=== PATIENT | female | born 1990 | race Caucasian/White ===

== ENCOUNTER 2016-05-01 16:00 | Inpatient (IN) | payer BC ==
[~2016-05-01] VITALS: Ht 165.1 cm; Wt 80.9 kg
[2016-05-01 16:39] VITALS: Ht 165.1 cm; Wt 80.9 kg
[2016-05-01] MEDS ORDERED: PRENTAB26 PO (16:39)
[2016-05-01] MEDS ORDERED: LACTATED RINGER'S 1000ML 1,000 ML IV PRN (16:54)
[2016-05-01] MEDS: LACTATED RINGER'S 1000ML 1,000 ML IV SCH ×2 (17:00→19:17)
[2016-05-01] MEDS ORDERED: BUPIVACAINE 0.25% 30 ML VIAL ONE (17:09)
[2016-05-01] MEDS ORDERED: FENTANYL CITRATE INJ 50 MCG/1 ML 2 ML VIAL ONE (17:10)
[2016-05-01] MEDS ORDERED: EpHEDrine SULFATE INJ 50 MG/ML AMP ONE (17:10)
[2016-05-01] MEDS ORDERED: FENTANYL 2MCG/ML ROPIV 1.25MG/ML 100ML BAG EPI ONE (17:10)
[2016-05-01 17:14] LABS: HEMATOCRIT 35.2 % (37-47); MEAN CELL VOLUME 86.3 fL (80-100); MEAN CORPUSCULAR HEMOGLOBIN 29.9 pg (25-34); MEAN CORPUSCULAR HGB CONC 34.7 g/dl (32-36); MEAN PLATELET VOLUME 9.4 fL (7.4-10.4); PLATELET COUNT 227 K/uL (130-400); RED BLOOD COUNT 4.08 M/uL (4.2-5.4); WHITE BLOOD COUNT 14.33 K/uL (4.8-10.8)
[2016-05-01] MEDS ORDERED: NALOXONE HCL INJ 1 MG in SODIUM CHLORIDE 0.9% 1000ML 1,000 ML IV PRN (18:30)
[2016-05-01] MEDS ORDERED: NALBUPHINE HCL INJ 10 MG/ML AMP IV PRN (18:30)
[2016-05-01] MEDS ORDERED: LACTATED RINGER'S 1000ML 500 ML IV PRN (18:30)
[2016-05-01] MEDS ORDERED: NALOXONE HCL INJ 0.4 MG/1 ML VIAL/CARP IV PRN (18:30)
[2016-05-01] MEDS ORDERED: ONDANSETRON INJ 2 MG/ML 2 ML VIAL IV PRN (18:30)
[2016-05-01] MEDS ORDERED: PROMETHAZINE HCL INJ 25 MG in SODIUM CHLORIDE 0.9% 50ML 50 ML IV PRN (18:30)
[2016-05-01] MEDS ORDERED: EpHEDrine SULFATE INJ 50 MG/ML AMP IV PRN (18:30)
[2016-05-01] MEDS ORDERED: DiphenhydrAMINE HCL 50 MG/ML VIAL IV PRN (18:30)
[2016-05-01] MEDS ORDERED: FENTANYL 2MCG/ML ROPIV 1.25MG/ML 100ML BAG EPI PRN (18:30)
--- NOTE | 2016-05-01 20:37 | Progress Note ---
Progress Note Date of Service May 01, 2016. Progress Note Cervix 4.5/80/-2/vertex AROM with light meconium stained fluid FHT Cat 1
--- NOTE | 2016-05-01 21:03 | HISTORY & PHYSICAL EXAMINATION ---
DATE OF ADMISSION: 05/01/2016 REASON FOR ADMISSION: Term in labor. HISTORY OF PRESENT ILLNESS: The patient is a 26-year-old female, 2, para 0-0-1-0 at 40.5 weeks, AB positive, GBS negative, who was admitted from the office after having some irregular contractions and several variables. The patient was admitted. She progressed to active labor. On admission, she was 3-4 cm dilated and was admitted. PAST MEDICAL HISTORY: Positive for asthma and an abnormal Pap smear. PAST SURGICAL HISTORY: Positive for shoulder surgery. ALLERGIES: No known allergies. MEDICATIONS: vitamins. FAMILY HISTORY: Noncontributory. REVIEW OF SYSTEMS: Negative. SOCIAL HISTORY: Denies smoking, alcohol or drug use. PHYSICAL EXAMINATION: HEENT: Within normal limits. LUNGS: Clear to auscultation. COR: Regular rate and rhythm. ABDOMEN: Soft, nontender and gravid. EXTREMITIES: Within normal limits. NEUROLOGIC: Intact. ASSESSMENT: Term in labor. PLAN: We will admit and anticipate normal delivery.
[2016-05-01] MEDS ORDERED: OXYTOCIN 30 UNITS/500ML NSS IV ONE (22:51)
[2016-05-01] MEDS ORDERED: LACTATED RINGER'S 1000ML 1,000 ML IV SCH (23:26)
[2016-05-01] MEDS ORDERED: LANOLIN OINT EXT PRN ×2 (23:30)
[2016-05-01] MEDS ORDERED: OXYTOCIN 30 UNITS/500ML NSS IV PRN (23:30)
[2016-05-01] MEDS ORDERED: ACETAMINOPHEN 325 MG TAB PO PRN (23:30)
[2016-05-01] MEDS ORDERED: BENZOCAINE 20% AER SPR 82.5 GM CAN EXT PRN (23:30)
[2016-05-01] MEDS ORDERED: SUPERCREAM 0.870 % 15GM JAR EXT PRN (23:30)
[2016-05-01] MEDS ORDERED: ACETAMINOPHEN/CODEINE 300/30MG TAB PO PRN ×2 (23:30)
[2016-05-01] MEDS ORDERED: HYDROCORTISONE ACETATE 25 MG SUPP PR PRN (23:30)
[2016-05-01] MEDS ORDERED: MEASLES, MUMPS & RUBELLA VIRUS VIAL SQ. ONE (23:30)
[2016-05-01] MEDS ORDERED: DIPHTHERIA/TETANUS/PERTUSSIS 0.5 ML SYR/VIAL IM. ONE (23:30)
--- NOTE | 2016-05-01 23:35 | Progress Note ---
Progress Note Date of Service May 01, 2016. Progress Note Delivery Note live female over intact perineum ORQUIDEA with nuchal cord x1 reduced at delivery. Apgars 8/9 weight pending. Delayed cord clamping followed by cord blood and spontaneously delivery of intact placenta. Small 1st degree tear repaired with 3/0 Vicryl suture. EBL 200 ml. Final sponge, needle and instrument count are correct. Mom and baby stable.
[2016-05-02] VITALS (7 sets, daily range): BP systolic 102–131; BP diastolic 64–77; PULSE 76–88; TEMP 36.5–36.9; O2SAT 97–99
--- NOTE | 2016-05-02 01:01 | Anesthesia Procedure Note ---
Anesthesia Epidural Removal Nt Date & Time May 02, 2016 at 01:01 Vital Signs Pain Intensity: 2.0 Notes Mental Status: alert / awake / arousable, participated in evaluation Nausea / Vomiting: adequately controlled Pain: adequately controlled Airway Patency, RR, SpO2: stable & adequate BP & HR: stable & adequate Hydration State: stable & adequate Neuraxial Anesthesia: was administered Anesthetic Complications: no major complications apparent, pt satisfied with anesthetic care Epidural: removed without complications, with tip intact
[2016-05-02] MEDS: IBUPROFEN 600 MG TAB PO PRN ×4 (01:39→21:57)
[2016-05-02 06:48] LABS: HEMATOCRIT 32.4 % (37-47)
[2016-05-02] MEDS: PRENATAL VITAMIN TAB PO SCH (07:47)
[2016-05-02] MEDS: DOCUSATE SODIUM 100 MG CAP PO SCH ×2 (07:48→19:56)
[2016-05-02] MEDS: FERROUS SULFATE 325 MG TAB PO SCH (07:50)
--- NOTE | 2016-05-02 10:11 | OB/GYN Progress Note ---
[employer] Progress Note Date of Service May 02, 2016. Subjective conversation w/ patient, physical exam Ambulation: ambulating normally Voiding: no voiding problems Passing Gas: Yes Diet Tolerance: Regular Diet Lochia: Moderate Review of Systems Constitutional: No chills, No fatigue, No fever, No problem reported, No sweats , No weakness, No weight loss Respiratory: No cough, No dyspnea at rest, No dyspnea on exertion, No hemoptysis, No problem reported, No shortness of breath, No sputum, No wheezing Cardiac: No PND, No chest pain, No claudication, No edema, No orthopnea, No palpitations, No problem reported Breast: No breast lump, No breast pain, No change in shape, No nipple discharge , No problem reported, No see HPI Abdomen: No GI bleeding, No constipation, No diarrhea, No nausea, No pain, No problem reported, No vomiting Female : No abnormal vaginal bleeding, No dysuria, No hematuria, No incontinence, No problem reported, No see HPI, No urinary frequency, No vaginal discharge PPD #2 pt doing well no complaints anticipate disch AM Objective Vital Signs Date Time Temp Pulse Resp B/P Pulse Ox O2 Delivery O2 Flow Rate FiO2 05/02/16 04:10 36.7 82 18 106/64 97 Room Air 05/02/16 02:00 36.7 87 18 131/77 99 Room Air 05/02/16 02:00 99 Room Air Laboratory Results Last 24 Hours Test 05/01/16 17:09 05/02/16 06:07 White Blood Count 14.33 K/uL Red Blood Count 4.08 M/uL Hemoglobin 12.2 g/dL 10.9 g/dL Hematocrit 35.2 % 32.4 % Mean Corpuscular Volume 86.3 fL Mean Corpuscular Hemoglobin 29.9 pg Mean Corpuscular Hemoglobin Concent 34.7 g/dl RDW Standard Deviation 41.8 fL RDW Coefficient of Variation 13.3 % Platelet Count 227 K/uL Mean Platelet Volume 9.4 fL
[2016-05-02] MEDS ORDERED: BISACODYL 5 MG TABEC PO SCH (20:00)
[2016-05-03] MEDS ORDERED: BISACODYL 10 MG SUPP PR PRN (07:00)
[2016-05-03 07:15] VITALS: BP 114/70; PULSE 78; TEMP 36.3; O2SAT 100
[2016-05-03] MEDS: DOCUSATE SODIUM 100 MG CAP PO SCH (07:37)
[2016-05-03] MEDS: IBUPROFEN 600 MG TAB PO PRN ×2 (07:37→12:09)
[2016-05-03] MEDS: FERROUS SULFATE 325 MG TAB PO SCH (07:37)
[2016-05-03] MEDS: PRENATAL VITAMIN TAB PO SCH (07:37)
--- NOTE | 2016-05-03 09:04 | Discharge Instructions ---
Discharge Instructions Date of Service May 03, 2016. Admission Reason for Admission: Prolonged Monitering Discharge Discharge Diagnosis / Problem: VAGINAL dELIVERY Discharge Goals Goal(s): Routine recovery after delivery Medications Continue Dispensed Medications: supercream, dermaplast, tucks, lansinoh Activity Recommendations Activity Limitations: per Instructions/Follow-up section . Instructions / Follow-Up Instructions / Follow-Up ACTIVITY RECOMMENDATIONS: * Gradual return to full activity over the next 2-3 weeks. * No lifting - nothing heavier than baby over the next 2-3 weeks. * Do not engage in vigorous exercise, sexual activity or sports until cleared by your physician. * Do not drive or operate any motorized equipment until cleared by your physician. * You may shower/bathe daily. BREAST CARE: If you are not breast feeding: * Wear a supportive bra 24 hours a day for one to two weeks. * Avoid stimulating your breasts and nipples as much as possible during the first few weeks after delivery. * When taking a shower, have the warm water hit your back, not breasts. * When your breasts feel full, apply ice packs. Usually three to four times a day helps ease the discomfort. * Take a mild pain medication (Tylenol/Motrin) when you are uncomfortable. If breast feeding: * Use breast milk to lubricate nipples. Lansinoh cream may be used for sore nipples. You do not need to remove cream prior to breast feeding. If using a different brand of cream, check the label for directions regarding removal of cream prior to nursing. * Wear a supportive bra. * If having problems with breasts or breast feeding, call a regulatory affairs consultant or your health care provider. EPISIOTOMY CARE: After delivery, if you have an episiotomy (stitches), the following steps will ease discomfort and aid healing. * For the first 24 hours after delivery, place ice packs next to your episiotomy to help reduce swelling. * After the first 24 hour-period, sitz baths, either portable or in the tub, are suggested. A shower with a shower arm sprayed over the episiotomy may be comforting. * Vandana care should be done after each voiding and bowel movement. Squirt warm water from a plastic bottle over the perineum (region of the body between the anus and urinary opening) and pat dry. * Use Dermoplast to ease discomfort. Shake container. Willow directly over the episiotomy. * Place a Tucks on a clean sanitary pad next to your episiotomy. OVER THE COUNTER MEDICATION: * For discomfort or pain, you may use Acetaminophen (Tylenol), Ibuprofen (Advil ), or Naproxen (Aleve) following the package directions. * For constipation you may use Colace following the package directions. SPECIAL CARE INSTRUCTIONS: When you are discharged from the hospital, it is important for you to follow the instructions listed below: * During the first week at home, you should be able to care for yourself and your baby. In addition, the usual light household activities are encouraged. * Limit your activities to the way you feel. Do not try to clean the house or move furniture. Be sensible. * If you actively engage in sports and have done so up until the time of your delivery, you may resume these activities as soon as you feel able. This may take up to one month or even longer. Use good judgment. * Continue to take your vitamins for at least six weeks after the of your baby. * Your diet need not be limited unless you were on a special diet before your delivery. Breast-feeding mothers need around 2500 calories per day and at least 64-80 ounces of fluid per day (8 to 10 glasses). * You should eat foods from the four major food groups. Crash diets or fad diets are to be avoided. Eating lean meats, fresh fruits and vegetables, low-fat dairy products, high fiber foods and a regular exercise program, will help you get back to your pre- weight without putting your health at risk. * Constipation is sometimes a problem after delivery. Take a mild laxative as needed. If breast feeding, Milk of Magnesia is acceptable to use. You may use a suppository or Fleets enema if no episiotomy. * A daily shower or tub bath is suggested. Be sure to thoroughly and gently dry the perineum. * A bloody vaginal discharge will usually continue until around four weeks post . A small amount of bleeding may continue for as long as six weeks. Vaginal discharge changes from the bright red bleeding after delivery to pink then brownish and finally yellowish-pink before becoming white and disappearing. * Bleeding may increase with activity. Your first period may come in 4-8 weeks. If you are breast feeding, your period may be delayed even longer. * [place] (sex) can begin whenever both you and your partner feel comfortable and do not have any form of genital infection. It is recommended that you wait until after your return appointment and discuss with your physician. If you have questions, please talk to your health care practitioner. A condom should be used to prevent infection and . * Foreplay, gentle intercourse and lubrication is very important the first several times to prevent pain. A water-based lubricant such as K-Y jelly or Astroglide may be used. * Tampons may be used six weeks after delivery. * Douching should be avoided for 6 weeks after delivery. * If you have RH negative blood and your baby is RH positive, you will receive RHOGAM by injection prior to discharge. The nurse will give you a card to keep with you that has the date and place that you received RHOGAM after delivery. * During your care, you had a Rubella screen done to check for the presence of rubella antibodies in your blood. If your test was negative, you will receive a Rubella vaccine prior to discharge. This vaccine may cause a fever, soreness at the injection site and flu-like symptoms. If these symptoms persist, notify your health care practitioner. is not advised for three months after a Rubella vaccine. There is a higher chance of having a baby with defects if conceived within three months of getting the vaccine. * If you were discharged 24 hours from delivery or before 48 hours: Visiting nurses will come to your home 48 hours after discharge to assess you and your baby. The visiting nurse will meet with you while you are in the hospital to arrange a time and get directions to your home. * Verbalizes understanding of car seat law as reviewed with patient nursing. * Car Seat hand-out given and reviewed with patient by nursing. * Shaken baby information reviewed with patient by nursing. Call you doctor if: * Heavy bleeding (saturating several pads an hour) or passing clots the size of your fist. * A fever >101 degrees F (38.3 degrees C) on two occasions four hours apart and/or chills. * Unusual pain in the pelvic or vaginal areas. * "Baby Blues" lasting longer than two weeks. If you have any questions or concerns, call your health care practitioner at . FOLLOW-UP VISIT: * Please call the office at to schedule a 6 week examination. It is important you keep this appointment. * It is important for you to make arrangements for either yearly or twice yearly check-ups thereafter. Current Hospital Diet Patient's current hospital diet: Regular OB Diet Discharge Diet Recommended Diet: Regular OB Diet Pending Studies Studies pending at discharge: no Medical Emergencies . Who to Call and When: Medical Emergencies: If at any time you feel your situation is an emergency, please call 911 immediately. . Non-Emergent Contact Non-Emergency issues call your: Primary Care Provider, [employer] . . "Provider Documentation" section prepared by Matt Gonzalez. VTE Core Measure Inpt VTE Proph given/why not?: Treatment not indicated
--- NOTE | 2016-05-03 09:06 | OB/GYN Progress Note ---
CONCRETE RU[employer]ER Progress Note Date of Service May 03, 2016. Subjective conversation w/ patient Ambulation: ambulating normally Voiding: no voiding problems Passing Gas: Yes Diet Tolerance: Regular Diet Lochia: Small Feeding Type: Breast Feeding Pain: 03/05 Notes: Doing well, no concerns. Would like to go home today. Objective Vital Signs Date Time Temp Pulse Resp B/P Pulse Ox O2 Delivery O2 Flow Rate FiO2 05/03/16 07:35 Room Air 05/03/16 07:15 36.3 78 18 114/70 100 Room Air 05/02/16 23:20 36.9 86 18 124/74 98 Room Air 05/02/16 23:20 98 Room Air 05/02/16 19:26 Room Air 05/02/16 19:26 36.7 88 16 110/72 99 Room Air 05/02/16 15:45 36.7 80 18 107/66 Room Air 05/02/16 15:45 Room Air 05/02/16 12:15 36.5 80 18 120/73 Room Air Physical Exam General Appearance: WELL-APPEARING Respiratory/Chest: chest non-tender, lungs clear Cardiovascular: regular rate, rhythm Abdomen: normal bowel sounds, soft Fundus: Firm Extremities: normal range of motion, non-tender Assessment and Plan Post- Day Number: 2 Continue Routine Care: -D/C home today -F/U in 6 weeks
[2016-05-03 13:37] VITALS: BP_DIAS 70; PULSE 78; TEMP 36.3
== END 2016-05-03 14:25 | disposition home or self-care (01) | DRG 775 ==
LOC: C.LD 16:00 → C.OPB 16:00 → C.LD 16:56 → C.OBG 05-02 02:32
PROVIDERS: ADMIT Obstetrics & Gynecology; ATTEND Obstetrics & Gynecology
PROC: 10E0XZZ Delivery of Products of Conception, External Approach (ICD-10-PCS; principal; 2016-05-01)
PROC: 0HQ9XZZ Repair Perineum Skin, External Approach (ICD-10-PCS; principal; 2016-05-01)
DX: O70.0 First degree perineal laceration during delivery (principal); O69.81X0 Labor and delivery complicated by cord around neck, without compression, not applicable or unspecified; Z3A.40 40 weeks gestation of pregnancy; J45.909 Unspecified asthma, uncomplicated; Z37.0 Single live birth; O99.52 Diseases of the respiratory system complicating childbirth

== ENCOUNTER 2018-10-20 12:00 | Inpatient (IN) ==
--- OUTSIDE RECORDS SUMMARY | 2018-10-20 12:07 | External Medical Summary | Continuity of Care Document ---
:1990 Author Name Molly Allison, Provider Address Unavailable Unavailable , Care Team Providers Name Role Phone Jamie Allison, Emeterio Unavailable [email or web address] PCP, UNKNOWN Unavailable Unavailable Assessments Assessed Problems:Acne vulgaris Problems Acne vulgaris (706.1) (L70.0) Allergies and Adverse Reactions Allergy history not documented Medications Medications not documented Procedures Procedures not documented Immunizations Immunizations not documented Plan of Treatment Planned Observations Planned Goals not documented Results No Known Results Results not documented
[2018-10-20] MEDS ORDERED: OXYTOCIN 30 UNITS/500 ML BAG IV PRN ×2 (13:00→23:13)
[2018-10-20] MEDS ORDERED: DINOPROSTONE 10 MG INSERT PV ONE (13:00)
[2018-10-20 13:37] LABS: Mean Corpuscular Hemoglobin 29.6 pg (25-34); Mean Corpuscular Volume 86.4 fL (80-100); Mean Platelet Volume 9.1 fL (7.4-10.4); Platelet Count 240 K/uL (130-400); RDW Coefficient of Variation 13.4 % (11.5-14.5); RDW Standard Deviation 42.1 fL (36.4-46.3); Red Blood Count 4.05 M/uL (4.2-5.4); White Blood Count 8.09 K/uL (4.8-10.8)
[2018-10-20 13:56] LABS: Mean Corpuscular Hgb Conc 34.3 g/dL (32-36)
[2018-10-20 14:00] LABS: Albumin Level 2.8 gm/dl (3.4-5.0); BUN Creatinine Ratio 15.9 (10-20); Calcium 8.1 mg/dl (8.5-10.1); Creatinine Clr Calc Pharmacy 151.6 ml/min; Est GFR (African American) 145.6; Est GFR (Non-African American) 125.6; Potassium 3.9 mmol/L (3.5-5.1)
[2018-10-20 14:03] LABS: Albumin Globulin Ratio 0.8 (0.9-2); Bilirubin,Total 0.3 mg/dl (0.2-1); Globulin 3.5 gm/dl (2.5-4.0); Total Protein 6.3 gm/dl (6.4-8.2)
--- NOTE | 2018-10-20 14:39 | History & Physical Report ---
Date of Service October 20, 2018 Assessment & Plan (1) Oligohydramnios in luz in third trimester: 28 yo at 40.2 wks with oligohydramnios, FHR reactive, cervix unfavorable Plan to admit monitor, cervical ripening with Cervidil All questions were answered History of Present Illness Chief Complaint: Induction Primary Care Provider: NO PCP Patient is a 28 yo at 40.2 wks who is being admitted for IOL at term for oligohydramnios, MARCELINO of 4.7 cm yesterday in office She has no complaints No ctxs/ LOF/VB LEONARDO/ Change in vision/ N&V/ CP/SOB +FM's Baby has been very active Her has been uncomplicated GBS negative Allergies Allergy/AdvReac Type Severity Reaction Status Date / Time No Known Allergies Allergy Verified 10/20/18 14:09 Home Medications Home Medications Medication Instructions Recorded Confirmed Type vit-iron fum-folic ac 1 tab PO DAILY 10/20/18 10/20/18 History [ Vitamin] Patient History Social History Preferred Language: [place] Beliefs That Will Affect Care: None marital status: Current Living Situation: Spouse Other Information That Helps Us Care for You: No Feels Safe at Home: Yes Safety Concerns: Feels Safe At This Time Smoking Status: Never smoker Hx Alcohol Use: No Hx Substance Use: No OB History FT in 2017 [employer] History No h/o STD's, no chlamydia/ GC/ HSV Review of Systems All systems reviewed & are unremarkable except as noted in HPI & below Physical Exam Constitutional: WD/WN, vitals as above well developed and well nourished Comfortable Gastrointestinal (Abdomen): normal bowel sounds, soft, nontender, no hepatosplenomegaly Abd: Soft, NT, Gravid Bed side US: Vertex, FHR 140's, FM's seen, MARCELINO 4 cm Musculoskeletal: no cyanosis or clubbing, extremities motor strength 5/5 Ext; NT, No edema Genitourinary: Cervix 1/ 50%/ -4, posterior, soft Results & Data Vital Signs (Past 12 Hours) Vital Signs Temp Pulse Resp BP 10/20/18 14:30 90 121/65 10/20/18 13:31 37.0 C 20 10/20/18 12:13 37.0 C 85 20 158/65 H Laboratory Results Lab Results 10/20/18 10/20/18 Range/Units 13:22 13:22 WBC 8.09 (4.8-10.8) K/uL RBC 4.05 L (4.2-5.4) M/uL Hgb 12.0 (12.0-16.0) g/dL Hct 35.0 L (37-47) % MCV 86.4 (80-100) fL MCH 29.6 (25-34) pg MCHC 34.3 (32-36) g/dL RDW Std Deviation 42.1 (36.4-46.3) fL RDW Coeff of Domenic 13.4 (11.5-14.5) % Plt Count 240 (130-400) K/uL MPV 9.1 (7.4-10.4) fL Sodium 139 (136-145) mmol/L Potassium 3.9 (3.5-5.1) mmol/L Chloride 110 H (98-107) mmol/L Carbon Dioxide 22 (21-32) mmol/L Anion Gap 7.0 (3-11) BUN 9 (7-18) mg/dl Creatinine 0.59 L (0.6-1.2) mg/dl Est Cr Clr Drug Dosing 151.6 ml/min Est GFR ( Amer) 145.6 Est GFR (Non-Af Amer) 125.6 BUN/Creatinine Ratio 15.9 (10-20) Glucose 81 (70-99) mg/dl Calcium 8.1 L (8.5-10.1) mg/dl Total Bilirubin 0.3 (0.2-1) mg/dl AST 13 L (15-37) U/L ALT 15 (12-78) U/L Alkaline Phosphatase 127 H (45-117) U/L Total Protein 6.3 L (6.4-8.2) gm/dl Albumin 2.8 L (3.4-5.0) gm/dl Globulin 3.5 (2.5-4.0) gm/dl Albumin/Globulin Ratio 0.8 L (0.9-2) Monitoring External Monitor NST: Reactive Tocodynamometer No ctxs
[2018-10-20] MEDS ORDERED: BUTORPHANOL TARTRATE 1 MG/ML VIAL IV PRN (15:14)
[2018-10-20] MEDS ORDERED: LACTATED RINGER'S 500 ML IV ONE (15:26)
[2018-10-20] MEDS: LACTATED RINGER'S 1,000 ML IV PRN ×2 (15:26→22:55)
--- NOTE | 2018-10-20 15:28 | Obstetrical Progress Note ---
Date of Service October 20, 2018 Subjective Patient is reevaluated She feels well, no contractions nor pain +FM Discussed PO and IVF hydration Continue to monitor Results & Data Vital Signs (Past 12 Hours) Vital Signs Temp Pulse Resp BP 10/20/18 14:59 37.1 C 10/20/18 14:57 86 128/69 10/20/18 14:30 90 121/65 10/20/18 13:31 37.0 C 10/20/18 12:13 37.0 C 85 20 158/65 H
--- NOTE | 2018-10-20 23:10 | Obstetrical Progress Note ---
Date of Service October 20, 2018 Subjective Patient is reevaluated She feels mild ctxs q 3-4 min, does not feel others in between No LOF/VB +FM FHR categ I [place] mild ctxs q 1-3 min, palpated mild Patient desires Stadol to sleep and not to wake u with ctxs She is hungry likes to eat when Cervidil is out Plan remove cervidil at 0230 am and let her eat/ shower and start pitocin Continue to monitor closely Results & Data Vital Signs (Past 12 Hours) Vital Signs Temp Pulse Resp BP 10/20/18 22:56 73 107/70 10/20/18 21:14 74 115/63 10/20/18 20:29 37.1 C 18 10/20/18 19:06 36.8 C 18 10/20/18 19:03 75 119/74 10/20/18 14:59 37.1 C 10/20/18 14:57 86 128/69 10/20/18 14:30 90 121/65 10/20/18 13:31 37.0 C 10/20/18 12:13 37.0 C 85 20 158/65 H
[2018-10-21] MEDS: LACTATED RINGER'S 1,000 ML IV PRN ×2 (05:43→07:37)
[2018-10-21] MEDS ORDERED: BUPIVACAINE 0.25% 30 ML VIAL ONE (06:53)
[2018-10-21] MEDS ORDERED: ePHEDrine sulfate 50 MG/ML AMP ONE (06:54)
[2018-10-21] MEDS ORDERED: fentaNYL citrate 100 MCG/2 ML VIAL ONE (06:54)
[2018-10-21] MEDS ORDERED: fentaNYL 2MCG/ML ROPIV 1.25MG/ML 100 ML BAG EPI ONE (06:55)
[2018-10-21] MEDS ORDERED: ePHEDrine sulfate 50 MG/ML AMP IV PRN (07:08)
[2018-10-21] MEDS ORDERED: fentaNYL 2MCG/ML ROPIV 1.25MG/ML 100 ML BAG EPI PRN (07:08)
[2018-10-21] MEDS ORDERED: NALBUPHINE HCL INJ 10 MG/ML AMP IV PRN (07:08)
[2018-10-21] MEDS ORDERED: DiphenhydrAMINE HCL 50 MG/ML VIAL IV PRN (07:08)
[2018-10-21] MEDS ORDERED: ONDANSETRON INJ 2 MG/ML 2 ML VIAL IV PRN (07:08)
[2018-10-21] MEDS ORDERED: NALOXONE HCL 1 MG in SODIUM CHLORIDE 0.9% 1000ML 1,000 ML IV PRN (07:08)
[2018-10-21] MEDS ORDERED: NALOXONE HCL 0.4 MG/1 ML VIAL/CARP IV PRN (07:08)
--- NOTE | 2018-10-21 07:08 | Anesthesiology Consultation ---
Date of Service October 21, 2018 Assessment & Plan (1) Encounter for pre-operative examination: Chart Review Chart Review: Acceptable Risk for Labor Epidural Consults Requested none ASA ASA2 Proposed Anesthesia Anesthesia Type: Labor Epidural Risk / Benefits Reviewed With: PT / POA / Parent / Guardian, Accepts Plan and Informed Consent Obtained History Height/Weight Height: 5 ft 5 in Weight: 82.1 kg Allergies Allergy/AdvReac Type Severity Reaction Status Date / Time No Known Allergies Allergy Verified 10/20/18 14:09 Medications Home Medications Medication Instructions Recorded Confirmed Last Taken vit-iron fum-folic ac 1 tab PO DAILY 10/20/18 10/20/18 10/19/18 09:00 [ Vitamin] Active Medications Generic Name Dose Route Start Last Admin Trade Name Freq PRN Reason Stop Dose Admin Butorphanol Tartrate 1 mg 10/20/18 15:14 10/20/18 23:13 Stadol IV 11/19/18 15:13 1 mg Q3HWA PRN Administration Pain Lactated Ringer's 1,000 mls @ 150 mls/hr 10/20/18 13:00 10/21/18 06:08 Lr IV 10/22/18 12:59 150 mls/hr .Q6H40M PRN Infusion L&D Protocol Protocol Oxytocin 30 units in 500 mls @ 4 mls/hr 10/20/18 23:13 10/21/18 04:50 Pitocin IV 10/22/18 23:12 0.24 units/hr .Q24H PRN 4 mls/hr Labor Induction/Augmentation Titration Protocol 0.24 UNITS/HR Exercise / Class Metabolic Activity II 4-5 Yardwork/Stairs/Walk up hill Past Surgical History Surgical History S/P arthroscopy of shoulder Past Anesthesia History No Hx of Anesthesia Complications and No Family Hx of Anesthesia Complications History of PONV No Hx of PONV and No Hx of Motion Sickness Social History Smoking Status: Never smoker Hx Alcohol Use: No Hx Substance Use: No substance use type: does not use Physical Exam Vital Signs Last Vital Signs Temp 98.2 F 10/21/18 03:46 Pulse 76 10/21/18 05:43 Resp 20 10/21/18 06:30 BP 107/68 10/21/18 05:43 Pulse Ox 99 10/21/18 00:30 ENMT Mouth: no dentition abnormality Thyromental Distance: > or= 3.5 Finger Breadths Mallampati Class: II Neck normal visual inspection Respiratory normal respiratory effort Auscultation: lungs clear to auscultation bilaterally Cardiovascular Rate/Rhythm: regular rate and regular rhythm Testing Laboratory Results 10/20/18 13:22 10/20/18 13:22
[2018-10-21] MEDS ORDERED: BENZOCAINE 20% AER SPR 82.5 GM CAN EXT PRN (10:38)
[2018-10-21] MEDS ORDERED: DIPHTHERIA/TETANUS/PERTUSSIS 0.5 ML SYR/VIAL IM ONE (10:38)
[2018-10-21] MEDS ORDERED: ACETAMINOPHEN 325 MG TAB PO PRN (10:38)
[2018-10-21] MEDS ORDERED: OXYTOCIN 30 UNITS/500 ML BAG IV PRN (10:38)
[2018-10-21] MEDS ORDERED: HYDROCORTISONE ACETATE 25 MG SUPP PR PRN (10:38)
[2018-10-21] MEDS ORDERED: SUPERCREAM 0.870% 15 GM JAR EXT PRN (10:38)
--- NOTE | 2018-10-21 10:41 | Obstetrical Progress Note ---
Date of Service October 21, 2018 Results & Data Vital Signs (Past 12 Hours) Vital Signs Temp Pulse Resp BP Pulse Ox 10/21/18 10:37 84 96 10/21/18 10:32 77 99 10/21/18 10:28 89 109/59 L 10/21/18 10:27 87 99 10/21/18 10:22 97 H 98 10/21/18 10:17 89 100 10/21/18 10:13 102 H 90 10/21/18 10:12 96 H 100 10/21/18 10:07 83 100 10/21/18 10:02 102 H 100 10/21/18 09:57 86 117/73 100 10/21/18 09:56 96 H 92 10/21/18 09:52 76 100 10/21/18 09:47 75 100 10/21/18 09:43 71 113/69 10/21/18 09:42 80 100 10/21/18 09:37 78 100 10/21/18 09:32 86 99 10/21/18 09:27 92 H 102/58 L 100 10/21/18 09:22 76 98 10/21/18 09:17 76 98 10/21/18 09:13 76 102/57 L 10/21/18 09:12 72 98 10/21/18 09:07 71 99 10/21/18 09:02 71 98 10/21/18 08:57 78 104/55 L 99 10/21/18 08:52 91 H 100 10/21/18 08:47 80 100 10/21/18 08:42 75 108/56 L 99 10/21/18 08:37 69 98 10/21/18 08:32 81 97 10/21/18 08:27 80 103/61 99 10/21/18 08:22 70 95 10/21/18 08:17 78 100 10/21/18 08:12 82 18 108/66 99 10/21/18 08:07 73 98 10/21/18 08:02 73 98 10/21/18 07:57 89 20 100 10/21/18 07:56 71 113/65 10/21/18 07:52 79 98 10/21/18 07:51 75 112/64 10/21/18 07:47 87 115/66 100 10/21/18 07:42 71 99 10/21/18 07:41 36.8 C 73 20 111/62 10/21/18 07:37 77 100 10/21/18 07:35 92 H 114/78 10/21/18 07:33 85 100/64 10/21/18 07:32 80 100 10/21/18 07:31 93 H 114/63 10/21/18 07:27 86 100 10/21/18 07:22 96 H 100 10/21/18 07:17 95 H 100 10/21/18 07:15 99 H 90 10/21/18 07:12 94 H 100 10/21/18 07:07 97 H 96 10/21/18 07:00 20 10/21/18 06:30 20 10/21/18 06:00 18 10/21/18 05:43 76 107/68 10/21/18 05:30 20 10/21/18 05:00 18 10/21/18 04:54 77 102/56 L 10/21/18 04:30 18 10/21/18 04:00 20 10/21/18 03:48 84 116/55 L 10/21/18 03:46 36.8 C 20 10/21/18 02:51 20 10/21/18 01:57 20 10/21/18 00:35 16 10/21/18 00:30 77 99 10/21/18 00:25 79 99 10/21/18 00:20 73 99 10/21/18 00:15 75 18 100 10/21/18 00:10 81 99 10/21/18 00:05 73 100 10/21/18 00:00 62 100 10/20/18 23:51 73 92 10/20/18 23:47 64 92 10/20/18 23:46 63 96 10/20/18 23:45 18 10/20/18 23:41 64 100 10/20/18 23:40 18 10/20/18 23:36 75 100 10/20/18 23:31 83 100 10/20/18 23:30 20 10/20/18 23:26 96 H 100 10/20/18 23:21 98 H 100 10/20/18 23:16 144 H 98 10/20/18 22:56 73 107/70 10/20/18 22:55 36.7 C 18
--- NOTE | 2018-10-21 10:44 | Delivery Summary ---
Vaginal Delivery Summary Date of Service October 21, 2018 Vaginal Delivery Summary Delivery Note live female over intact perineum ORQUIDEA with delayed cord clamping. Apgars 8/9 weight pending. cord blood obtained and placenta delivered spontaneously and intact. First degree tear repaired with 3/0 Vicryl suture. EBL 200 ml. Final sponge needle and instrument count are correct. Mom and baby stable.
--- NOTE | 2018-10-21 11:33 | Anesthesia Procedure Note ---
Date of Service October 21, 2018 Anesthesia Post Epidural Note Vital Signs Vital Signs: Temp Pulse Resp BP Pulse Ox 98.2 F 82 18 128/62 99 10/21/18 07:41 10/21/18 11:28 10/21/18 08:12 10/21/18 11:28 10/21/18 10:47 Pain Intensity Lower Abdomen: Pain Intensity: 0 Notes Mental Status: alert / awake / arousable and participated in evaluation Nausea / Vomiting: adequately controlled Pain: adequately controlled Airway Patency, RR, SpO2: stable & adequate BP & HR: stable & adequate Hydration State: stable & adequate Neuraxial Anesthesia: was administered and sensory block is resolving Anesthetic Complications: no major complications apparent and Pt Satisfied with anesthetic care Epidural: Removed without complications and With tip intact
[2018-10-21] MEDS: IBUPROFEN 600 MG TAB PO PRN ×2 (15:32→20:22)
[2018-10-21] MEDS: DOCUSATE SODIUM 100 MG CAP PO SCH (20:11)
[2018-10-22] MEDS: IBUPROFEN 600 MG TAB PO PRN ×2 (04:56→13:59)
[2018-10-22 07:04] LABS: Hematocrit (blood only) 32.5 % (37-47); Hemoglobin 10.7 g/dL (12.0-16.0); Mean Corpuscular Hemoglobin 28.8 pg (25-34); Mean Corpuscular Hgb Conc 32.9 g/dL (32-36); Mean Corpuscular Volume 87.6 fL (80-100); Mean Platelet Volume 9.4 fL (7.4-10.4); Platelet Count 206 K/uL (130-400); RDW Coefficient of Variation 13.4 % (11.5-14.5); RDW Standard Deviation 43.3 fL (36.4-46.3); Red Blood Count 3.71 M/uL (4.2-5.4); White Blood Count 8.36 K/uL (4.8-10.8)
[2018-10-22] MEDS ORDERED: PRENATAL VITAMIN 1 TAB PO SCH (08:00)
[2018-10-22] MEDS ORDERED: FERROUS SULFATE 325 MG TAB PO SCH (08:00)
[2018-10-22] MEDS: DOCUSATE SODIUM 100 MG CAP PO SCH (08:59)
[2018-10-22] MEDS ORDERED: NON-FORMULARY MEDICATION (Prenatal Vit-Iron Fum-Folic Ac [Prenatal Vitamin] 1 TAB) PO SCH (09:00)
--- NOTE | 2018-10-22 09:36 | Obstetrical Progress Note ---
Date of Service October 22, 2018 Subjective Patient is seen and examined. She feels well, no complaints. Likes to be discharged Ambulating without dizziness Voiding without difficulty Tolerating regular diet with out N&V Bleeding is minimal No fever/ chills/ CP/ SOB/ N&V/ Leg pain Breast feeding without problems Vital Signs Temp Pulse Pulse Resp BP BP BP 10/22/18 04:45 36.7 C 65 18 110/66 10/22/18 00:30 36.7 C 69 18 107/79 10/21/18 20:15 36.4 C L 99 H 18 130/86 10/21/18 15:30 36.9 C 81 18 110/73 10/21/18 12:50 36.8 C 88 18 120/74 10/21/18 12:12 37.0 C 93 H 20 124/72 10/21/18 11:57 96 H 121/63 10/21/18 11:42 80 114/61 10/21/18 11:28 82 128/62 10/21/18 11:13 91 H 146/84 H 10/21/18 10:57 86 119/56 L 10/21/18 10:50 75 109/52 L 10/21/18 10:47 84 10/21/18 10:42 84 10/21/18 10:37 84 10/21/18 10:32 77 10/21/18 10:28 89 109/59 L 10/21/18 10:27 87 10/21/18 10:22 97 H 10/21/18 10:17 89 10/21/18 10:13 102 H 10/21/18 10:12 96 H 10/21/18 10:07 83 10/21/18 10:02 102 H 10/21/18 09:57 86 117/73 10/21/18 09:56 96 H 10/21/18 09:52 76 10/21/18 09:47 75 10/21/18 09:43 71 113/69 10/21/18 09:42 80 10/21/18 09:37 78 Pulse Ox 10/22/18 04:45 10/22/18 00:30 10/21/18 20:15 10/21/18 15:30 99 10/21/18 12:50 98 10/21/18 12:12 10/21/18 11:57 10/21/18 11:42 10/21/18 11:28 10/21/18 11:13 10/21/18 10:57 10/21/18 10:50 10/21/18 10:47 99 10/21/18 10:42 98 10/21/18 10:37 96 10/21/18 10:32 99 10/21/18 10:28 10/21/18 10:27 99 10/21/18 10:22 98 10/21/18 10:17 100 10/21/18 10:13 90 10/21/18 10:12 100 10/21/18 10:07 100 10/21/18 10:02 100 10/21/18 09:57 100 10/21/18 09:56 92 10/21/18 09:52 100 10/21/18 09:47 100 10/21/18 09:43 10/21/18 09:42 100 10/21/18 09:37 100 Lab Results 10/20/18 10/20/18 10/22/18 Range/Units 13:22 13:22 06:25 WBC 8.09 8.36 (4.8-10.8) K/uL RBC 4.05 L 3.71 L (4.2-5.4) M/uL Hgb 12.0 10.7 L (12.0-16.0) g/dL Hct 35.0 L 32.5 L (37-47) % MCV 86.4 87.6 (80-100) fL MCH 29.6 28.8 (25-34) pg MCHC 34.3 32.9 (32-36) g/dL RDW Std Deviation 42.1 43.3 (36.4-46.3) fL RDW Coeff of Domenic 13.4 13.4 (11.5-14.5) % Plt Count 240 206 (130-400) K/uL MPV 9.1 9.4 (7.4-10.4) fL Sodium 139 (136-145) mmol/L Potassium 3.9 (3.5-5.1) mmol/L Chloride 110 H (98-107) mmol/L Carbon Dioxide 22 (21-32) mmol/L Anion Gap 7.0 (3-11) BUN 9 (7-18) mg/dl Creatinine 0.59 L (0.6-1.2) mg/dl Est Cr Clr Drug Dosing 151.6 ml/min Est GFR ( Amer) 145.6 Est GFR (Non-Af Amer) 125.6 BUN/Creatinine Ratio 15.9 (10-20) Glucose 81 (70-99) mg/dl Calcium 8.1 L (8.5-10.1) mg/dl Total Bilirubin 0.3 (0.2-1) mg/dl AST 13 L (15-37) U/L ALT 15 (12-78) U/L Alkaline Phosphatase 127 H (45-117) U/L Total Protein 6.3 L (6.4-8.2) gm/dl Albumin 2.8 L (3.4-5.0) gm/dl Globulin 3.5 (2.5-4.0) gm/dl Albumin/Globulin Ratio 0.8 L (0.9-2) PE: General: Alert, orientedx3, NAD Abd: soft, NT, fundus firm, below Umbilicus Perineum intact, Lochia rubra minimal Ext; NT, no edema AP: 28 yo s/p , ppd# 1 VSS Afebrile doing well Continue routine care All questions were answered D/C home , f/u in office Discussed when to call Results & Data Vital Signs (Past 12 Hours) Vital Signs Temp Pulse Resp BP 10/22/18 04:45 36.7 C 65 18 110/66 10/22/18 00:30 36.7 C 69 18 107/79
[2018-10-22] MEDS ORDERED: BISACODYL 5 MG TABEC PO SCH (20:00)
[2018-10-23] MEDS ORDERED: BISACODYL 10 MG SUPP PR PRN (06:00)
== END 2018-10-22 17:00 | disposition home or self-care (01) | DRG 807 ==
LOC: 4S1 12:00 → 4S2 10-21 13:30

== ENCOUNTER 2020-09-09 22:47 | Inpatient (IN) ==
[2020-09-09] MEDS ORDERED: OXYTOCIN 30 UNITS/500 ML BAG IV PRN (23:05)
[2020-09-09] MEDS ORDERED: ePHEDrine sulfate 50 MG/ML AMP ONE (23:30)
[2020-09-09] MEDS ORDERED: BUPIVACAINE 0.25% 30 ML VIAL ONE (23:30)
[2020-09-09] MEDS ORDERED: SODIUM CHLORIDE 0.9% INJ 10 ML VIAL ONE (23:30)
[2020-09-09] MEDS: LACTATED RINGER'S 1,000 ML IV PRN (23:30)
[2020-09-09] MEDS ORDERED: fentaNYL citrate 100 MCG/2 ML VIAL ONE (23:31)
[2020-09-09] MEDS ORDERED: fentaNYL 2MCG/ML ROPIVACAINE 1.25MG/ML 100 ML BAG EPI ONE (23:31)
[2020-09-09 23:36] LABS: Hematocrit (blood only) 35.7 % (37-47); Hemoglobin 11.8 g/dL (12.0-16.0); Mean Corpuscular Hemoglobin 28.4 pg (25-34); Mean Corpuscular Hgb Conc 33.1 g/dL (32-36); Mean Platelet Volume 9.7 fL (7.4-10.4); Platelet Count 223 K/uL (130-400); RDW Coefficient of Variation 13.6 % (11.5-14.5); RDW Standard Deviation 42.6 fL (36.4-46.3); Red Blood Count 4.15 M/uL (4.2-5.4); White Blood Count 12.28 K/uL (4.8-10.8)
--- NOTE | 2020-09-09 23:42 | History & Physical Report ---
Date of Service September 09, 2020 Assessment & Plan Plan: Admit in labor. planning epidural Admission and Anticipated Discharge Date Admission Date: September 09, 2020 History of Present Illness Chief Complaint: term in labor Primary Care Provider: NO PCP 30 F P2012 at 40.6 weeks admitted in active labor. SROM clear fluid. Allergies Allergy/AdvReac Type Severity Reaction Status Date / Time No Known Allergies Allergy Verified 09/09/20 23:18 Home Medications Medication Instructions Recorded Confirmed Type vitamins-iron fumarate 27 1 tab PO DAILY 10/20/18 09/09/20 History mg iron-folic acid 0.8 mg tablet ( Vitamin) Patient History Surgical History S/P arthroscopy of shoulder Social History Smoking Status: Never smoker Hx Alcohol Use: No Hx Substance Use: No Preferred Language: Kyrgyz Beliefs That Will Affect Care: None marital status: Current Living Situation: Spouse Other Information That Helps Us Care for You: No Feels Safe at Home: Yes Safety Concerns: Feels Safe At This Time Assistive Devices: None OB History x2 Review of Systems All systems reviewed & are unremarkable except as noted in HPI & below Physical Exam Genitourinary: no vaginal lesions, no adnexal mass Manual OB Exam: + cervical dilation 4 cm, + cervical effacement 90%, + station -2 and + amniotic fluid meconium Results & Data ([facility]) Vital Signs (Past 12 Hours) Vital Signs Temp Pulse Resp BP Pulse Ox 09/09/20 23:36 88 100 09/09/20 23:09 37.0 C 18 09/09/20 23:05 80 120/71
[2020-09-09] MEDS ORDERED: fentaNYL 2MCG/ML ROPIVACAINE 1.25MG/ML 100 ML BAG EPI PRN (23:52)
[2020-09-09] MEDS ORDERED: diphenhydrAMINE 50 MG/ML VIAL IV PRN (23:52)
[2020-09-09] MEDS ORDERED: NALOXONE HCL 1 MG in SODIUM CHLORIDE 0.9% 1000ML 1,000 ML IV PRN (23:52)
[2020-09-09] MEDS ORDERED: ePHEDrine sulfate 50 MG/ML AMP IV PRN (23:52)
[2020-09-09] MEDS ORDERED: NALBUPHINE HCL INJ 10 MG/ML AMP IV PRN (23:52)
[2020-09-09] MEDS ORDERED: NALOXONE HCL 0.4 MG/1 ML VIAL/CARP IV PRN (23:52)
--- NOTE | 2020-09-09 23:52 | Labor Progress Brief Note ---
Date of Service September 09, 2020 Assessment & Plan Admission and Anticipated Discharge Date Admission Date: September 09, 2020 Physical Exam Genitourinary: Manual OB Exam: + cervical dilation 5 cm, + cervical effacement 90%, + station -2 and + amniotic fluid meconium [facility] & Data ([facility]) Vital Signs (Past 12 Hours) Vital Signs Temp Pulse Resp BP Pulse Ox 09/09/20 23:46 85 99 09/09/20 23:41 82 100 09/09/20 23:36 88 100 09/09/20 23:09 37.0 C 18 09/09/20 23:05 80 120/71
--- NOTE | 2020-09-09 23:52 | Anesthesiology Consultation ---
Date of Service September 09, 2020 Assessment & Plan ASA ASA2 Proposed Anesthesia Anesthesia Type: Labor Epidural Risk / Benefits Reviewed With: PT / POA / Parent / Guardian, Accepts Plan and Informed Consent Obtained History Height/Weight Height: 5 ft 5 in Weight: 79.832 kg Allergies Allergy/AdvReac Type Severity Reaction Status Date / Time No Known Allergies Allergy Verified 09/09/20 23:18 Medications Home Medications Medication Instructions Recorded Confirmed Last Taken vitamins-iron fumarate 27 1 tab PO DAILY 10/20/18 09/09/20 09/09/20 08:00 mg iron-folic acid 0.8 mg tablet ( Vitamin) Active Medications Generic Name Dose Route Start Last Admin Trade Name Freq PRN Reason Stop Dose Admin Lactated Ringer's 1,000 mls @ 125 mls/hr 09/09/20 23:05 09/09/20 23:30 Lr IV 09/11/20 23:04 999 mls/hr .Q8H PRN Administration L&D Protocol Protocol Past Medical History Medical History (Updated 09/10/20 @ 00:01 by Geneva Millard RN) History of COVID-19 Exercise / Class Metabolic Activity II 4-5 Yardwork/Stairs/Walk up hill Past Surgical History Surgical History S/P arthroscopy of shoulder Past Anesthesia History No Hx of Anesthesia Complications and No Family Hx of Anesthesia Complications History of PONV No Hx of PONV and No Hx of Motion Sickness Social History Smoking Status: Never smoker Hx Alcohol Use: No Hx Substance Use: No substance use type: does not use Review of Systems denies fever/cough/ colds/ chest pain/ SOB/ FIDELINA denies FIDELINA Physical Exam Vital Signs Last Vital Signs Temp 37.0 C 09/09/20 23:09 Pulse 89 09/10/20 00:15 Resp 18 09/09/20 23:09 BP 117/72 09/10/20 00:15 Pulse Ox 99 09/10/20 00:11 ENMT Mouth: no TMJ abnormality and no dentition abnormality Thyromental Distance: > or= 3.5 Finger Breadths Mallampati Class: II Neck neck extension not limited Respiratory normal respiratory effort; no respiratory distress Auscultation: lungs clear to auscultation bilaterally Cardiovascular Rate/Rhythm: regular rate and regular rhythm Neurologic moves all extremities Psychiatric Orientation: alert and oriented x 3 Testing Laboratory Results 09/09/20 23:22
[2020-09-10] MEDS ORDERED: BUPIVACAINE 0.25% 30 ML VIAL ONE (01:12)
[2020-09-10] MEDS: LACTATED RINGER'S 1,000 ML IV PRN (01:31)
--- NOTE | 2020-09-10 01:32 | Communication Note ---
Date of Service: September 10, 2020 asked to reevaluate epidural. Pt has a numb left leg and considerable back pain. Pt is 6 cm. Decided to replace the epidural and perform a cse. sterile prep/drape/gloves. duraprep used. 1% lidocaine infiltrated. 17 gauge touey needle advanced to NELI with air at 5 cm. a 25 gauge spinal needle was placed with clear csf returned. 1 mL perservative free 0.25% bupivicaine placed in csf. catheter advanced to 12 cm. negative aspiration of catheter. catheter secured. pt pump was restarted
--- NOTE | 2020-09-10 02:57 | Delivery Summary ---
Vaginal Delivery Summary Date of Service September 10, 2020 Vaginal Delivery Summary Delivery Note live male over intact perineum ORQUIDEA with nuchal cord x1 reduced at delivery of head with delayed cord clamping and Apgars 8/9 weight pending. Placenta delivered spontaneously and intact. EBL 100 ml. Final sponge and instrument count are correct. Mom and baby stable.
[2020-09-10] MEDS ORDERED: DIPHTHERIA/TETANUS/PERTUSSIS 0.5 ML SYR/VIAL IM ONE (05:38)
[2020-09-10] MEDS ORDERED: HYDROCORTISONE ACETATE 25 MG SUPP PR PRN (05:38)
[2020-09-10] MEDS ORDERED: SUPERCREAM 0.870% 15 GM JAR EXT PRN (05:38)
[2020-09-10] MEDS ORDERED: bisacodyL 10 MG SUPP PR PRN (05:38)
[2020-09-10] MEDS ORDERED: OXYTOCIN 30 UNITS/500 ML BAG IV PRN (05:38)
[2020-09-10] MEDS ORDERED: BENZOCAINE 20% AER SPR 82.5 GM CAN EXT PRN (05:38)
[2020-09-10] MEDS: IBUPROFEN 600 MG TAB PO PRN ×3 (07:12→20:20)
[2020-09-10] MEDS: DOCUSATE SODIUM 100 MG CAP PO SCH ×2 (08:17→20:00)
[2020-09-10] MEDS: FERROUS SULFATE 325 MG TAB PO SCH (08:17)
[2020-09-10] MEDS: PRENATAL VITAMIN 1 TAB PO SCH (08:17)
[2020-09-10] MEDS ORDERED: NON-FORMULARY MEDICATION (Prenatal Vit-Iron Fum-Folic Ac [Prenatal Vitamin] 27 mg iron- 0. PO SCH (09:00)
--- NOTE | 2020-09-10 10:23 | Anesthesia Procedure Note ---
Date of Service September 10, 2020 Anesthesia Post Epidural Note Vital Signs Vital Signs: Temp Pulse Resp BP Pulse Ox 36.9 C 69 20 107/67 100 09/10/20 07:29 09/10/20 07:29 09/10/20 07:29 09/10/20 07:29 09/10/20 07:29 Pain Intensity Abdomen: Pain Intensity: 1 Notes Mental Status: alert / awake / arousable and participated in evaluation Nausea / Vomiting: adequately controlled Pain: adequately controlled Airway Patency, RR, SpO2: stable & adequate BP & HR: stable & adequate Hydration State: stable & adequate Neuraxial Anesthesia: was administered and sensory block is resolving Anesthetic Complications: no major complications apparent Epidural: Removed without complications and With tip intact
[2020-09-10] MEDS: ACETAMINOPHEN 325 MG TAB PO PRN (15:22)
[2020-09-11] MEDS: IBUPROFEN 600 MG TAB PO PRN ×2 (00:07→06:37)
[2020-09-11] MEDS: ACETAMINOPHEN 325 MG TAB PO PRN (03:39)
[2020-09-11 06:50] LABS: Hematocrit (blood only) 32.8 % (37-47); Hemoglobin 10.6 g/dL (12.0-16.0); Mean Corpuscular Hemoglobin 28.6 pg (25-34); Mean Corpuscular Hgb Conc 32.3 g/dL (32-36); Mean Corpuscular Volume 88.4 fL (80-100); Mean Platelet Volume 9.3 fL (7.4-10.4); Platelet Count 176 K/uL (130-400); RDW Coefficient of Variation 13.8 % (11.5-14.5); RDW Standard Deviation 44.8 fL (36.4-46.3); Red Blood Count 3.71 M/uL (4.2-5.4); White Blood Count 8.81 K/uL (4.8-10.8)
--- NOTE | 2020-09-11 07:47 | Obstetrical Progress Note ---
Date of Service September 11, 2020 Assessment & Plan Admission and Anticipated Discharge Date Admission Date: September 09, 2020 Subjective Patient is seen and examined. She feels well, no complaints. Desires d/c today Ambulating without dizziness Voiding without difficulty Tolerating regular diet with out N&V Bleeding is minimal No fever/ chills/ CP/ SOB/ N&V/ Leg pain Breast feeding without problems Vital Signs Temp Pulse Resp BP Pulse Ox 09/11/20 00:05 36.5 C 74 16 113/71 99 09/10/20 20:05 36.7 C 75 17 120/71 100 Lab Results 09/09/20 09/09/20 09/11/20 Range/Units 23:08 23:22 06:34 WBC 12.28 H 8.81 (4.8-10.8) K/uL RBC 4.15 L 3.71 L (4.2-5.4) M/uL Hgb 11.8 L 10.6 L (12.0-16.0) g/dL Hct 35.7 L 32.8 L (37-47) % MCV 86.0 88.4 (80-100) fL MCH 28.4 28.6 (25-34) pg MCHC 33.1 32.3 (32-36) g/dL RDW Std Deviation 42.6 44.8 (36.4-46.3) fL RDW Coeff of Domenic 13.6 13.8 (11.5-14.5) % Plt Count 223 176 (130-400) K/uL MPV 9.7 9.3 (7.4-10.4) fL COVID-19 [facility] PE: General: Alert, orientedx3, NAD Abd: soft, NT, fundus firm, below Umbilicus Perineum intact, Lochia rubra minimal Ext; NT, no edema AP: 30 yo s/p , ppd# 1 VSS Afebrile doing well Continue routine care All questions were answered Discussed when to call D/C home , f/u in office Results & Data ([facility]) Vital Signs (Past 12 Hours) Vital Signs Temp Pulse Resp BP Pulse Ox 09/11/20 00:05 36.5 C 74 16 113/71 99 09/10/20 20:05 36.7 C 75 17 120/71 100
[2020-09-11] MEDS: PRENATAL VITAMIN 1 TAB PO SCH (08:06)
[2020-09-11] MEDS: DOCUSATE SODIUM 100 MG CAP PO SCH (08:06)
[2020-09-11] MEDS: FERROUS SULFATE 325 MG TAB PO SCH (08:06)
[2020-09-11] MEDS ORDERED: bisacodyL 5 MG TABEC PO SCH (20:00)
== END 2020-09-11 11:35 | disposition home or self-care (01) | DRG 807 ==
LOC: OPB 22:47 → 4S1 22:48 → 4S2 09-10 05:44